=== PATIENT | female | born 1995 | race Caucasian/White ===

== ENCOUNTER 2025-04-28 11:59 | Outpatient (CLI) | payer BC, SELFPAY ==
--- NOTE | 2025-04-28 12:15 | CRLHL7_ITS ---
For Patients: As a result of the Century Cures Act, medical imaging exams and procedure reports are released immediately into your electronic medical record. You may view this report before your referring provider. If you have questions, please contact your health care provider. OBSTETRICAL ULTRASOUND TRANSVAGINAL, 04/28/2025 CLINICAL INDICATION: Dating and viability. LMP: 02/19/2025 KEILY by LMP: 11/26/2025 Gestational age: 9 weeks 5 days Previous ultrasound: No TECHNIQUE: Real-time regalado-scale imaging of the fetus was performed transvaginal. Transvaginal imaging was performed for better visualization of the endometrium and ovaries. FINDINGS: CRL: 3.3 cm, 10 weeks 2 days; KEILY 11/22/2025 heart rate: 169 BPM Gestational sac: 4.5 cm, appears within normal limits Yolk sac: 3.3 mm, appears within normal limits Right ovary: 3.2 x 1.4 x 2.1 cm Left ovary: 4.3 x 2.6 x 3.6 cm, CL IMPRESSION: Single living intrauterine measuring 10 weeks 2 days with sonographic due date of 11/22/2025. MARK RUELAS M.D. Diagnostic Radiologist [email or web address] Transcribed: 5:[address]/Dictated by: Mark Ruelas MD @ 04/28/2025 2:03:00 PM (Electronically Signed)
== END 2025-04-28 12:00 | disposition home or self-care (01) ==
LOC: US 12:02
PROVIDERS: PCP Physician Assistant; Visit Provider Advanced Practice Midwife
DX: Z34.91 Encounter for supervision of normal pregnancy, unspecified, first trimester (principal); Z3A.10 10 weeks gestation of pregnancy
CPT/HCPCS: 76817; 83021; 84439; 84443; 86592; 86703; 86704; 86706; 86762; 86787; 86803; 86850; 86900; 86901; 87086; 87340

== ENCOUNTER 2025-05-12 09:45 | Outpatient (CLI) | payer BC, SELFPAY | END 2025-05-12 09:46 | disposition home or self-care (01) | LOC: NFLDREF 05-15 08:26 | PROVIDERS: PCP Physician Assistant; Referring Provider Physician Assistant; Visit Provider Midwife | DX: Z34.91 Encounter for supervision of normal pregnancy, unspecified, first trimester (principal) | CPT/HCPCS: 84432; 84439; 84443; 84481; 86376; 86800 ==

== ENCOUNTER 2025-05-31 10:36 | Outpatient (CLI) | payer BC, SELFPAY | END 2025-05-31 10:37 | disposition home or self-care (01) | LOC: NFLDREF 06-02 11:01 | PROVIDERS: PCP Physician Assistant; Referring Provider Physician Assistant; Visit Provider Advanced Practice Midwife | DX: Z34.92 Encounter for supervision of normal pregnancy, unspecified, second trimester (principal) | CPT/HCPCS: 87491; 87591 ==

== ENCOUNTER 2025-07-12 13:03 | Outpatient (CLI) | payer BC, SELFPAY ==
--- NOTE | 2025-07-12 13:00 | CRLHL7_ITS ---
For Patients: As a result of the Century Cures Act, medical imaging exams and procedure reports are released immediately into your electronic medical record. You may view this report before your referring provider. If you have questions, please contact your health care provider. OB ULTRASOUND LMP: 02/19/2025. KEILY by LMP: 11/26/2025. GA: 20 w, 3 d. INDICATION: Supervision of normal . TECHNIQUE: Real time regalado scale imaging of the fetus was performed. Transabdominal imaging performed. position: Vertex, breech, multiple positions. Cervix: Visualized. Technique: Transabdominal. Length of closed cervix: 3.7 cm. Placenta/cord: Placental position: Anterior. Technique: Transabdominal. Placenta tip to internal OS: 3.8 cm. Umbilical Cord: 3-vessel cord. Placenta insertion: Central. Amniotic Fluid: 5.5 cm SDP (greater than/equal to: 2- less than 8 cm). SURVEY: Observed Structures. Calvarium/Spine: Cerebellum: 2.2 cm, 22 w 1 d. Cisterna Magna: 2.6 mm. Nuchal Fold: 3.9 mm. Lateral Ventricle: 6.3 mm. CSP: Yes. Midline Falx: Yes. Choroid Plexus: Yes. Spine: Yes. Abdomen: Stomach: Yes. Abd Cord Insertion: Yes. Urinary Bladder: Yes. Kidneys: Yes. Diaphragm: Yes. Face: Nose/lips: Yes. Orbital view: Yes. Profile: Yes. Limbs: Upper Extremities: Yes. Lower Extremities: Yes. Hands: Yes. Feet: Yes. Vascular: 4-Chamber Heart: Yes. LVOT: Yes. RVOT: Yes. 3VV: Yes. 3VTV: Yes. BPD: 5.0 cm. 21 w, 0 d, 74 percent. HC: 18.0 cm. 20 w, 3 d, 42 percent. AC: 15.5 cm. 20 w, 5 d, 53 percent. FL: 3.4 cm. 20 w, 5 d, 53 percent. FL/AC ratio: 22.05 percent. HC/AC ratio: 1.16. heart rate: 142 bpm. age by this US: 21 w, 0 d. KEILY by this US: 11/22/2025. EFW: 371.40 g. Weight: 0 lbs, 13 oz. Percentile by KEILY: 61 percent. IMPRESSION: 1. Concordance of clinical and sonographic dating. 2. Normal anatomic survey. Mark Huddleston M.D. Diagnostic Radiologist [email or web address] TONY/Dictated by: Mark Huddleston MD @ 07/13/2025 6:10:00 PM (Electronically Signed)
== END 2025-07-12 13:04 | disposition home or self-care (01) ==
LOC: US 13:04
PROVIDERS: PCP Physician Assistant; Visit Provider Advanced Practice Midwife
DX: Z34.92 Encounter for supervision of normal pregnancy, unspecified, second trimester (principal); Z3A.20 20 weeks gestation of pregnancy
CPT/HCPCS: 76805